=== PATIENT | male | born 1980 | race African-American/Black ===

== ENCOUNTER 2019-07-20 10:24 | Emergency (ER) | payer MEDICAID ==
[~2019-07-20] VITALS: Ht 172.7 cm; Wt 77.0 kg
[2019-07-20] MEDS ORDERED: ACET-2708 PO (10:49)
[2019-07-20] MEDS ORDERED: nyquill (10:49)
[2019-07-20] MEDS ORDERED: IBUPROFEN 600MG TABLET PO ONE (12:00)
[2019-07-20] MEDS ORDERED: AMOXICILLIN/POTASSIUM CLAVULANATE 875/125MG TAB PO ONE (12:00)
[2019-07-20 13:24] VITALS: BP 125/67
== END 2019-07-20 13:25 | disposition home or self-care (01) ==
LOC: ER 10:24
DX: J02.8 Acute pharyngitis due to other specified organisms (principal); F12.10 Cannabis abuse, uncomplicated
CPT/HCPCS: 87430; 99283